=== PATIENT | female | born 2000 | race African-American/Black ===

== ENCOUNTER 2024-02-02 05:45 | Inpatient (IN) | payer MEDICAID ==
[~2024-02-02] VITALS: Ht 160 cm; Wt 90.5 kg
[2024-02-02] VITALS (19 sets, daily range): BP systolic 101–122; BP diastolic 52–77; PULSE 67–94; TEMP 97.4–98
[~2024-02-02 05:45] MED LIST: LR 1,000 ML IV SCH
[2024-02-02] MEDS ORDERED: Ondansetron 4 MG/2 ML VIAL IV SCH (06:00)
[2024-02-02] MEDS ORDERED: LR 1,000 ML IV SCH (06:00)
--- NOTE | 2024-02-02 06:15 | NUR ---
Report received and care assumed. Pt already on unit for scheduled repeat . Care plan reviewed with pt and at the bedside. Both verbalized an understanding and agreed with the plan. Call light within reach.
[2024-02-02 06:37] LABS: BASO # 0.1 K/mm3 (0.0-0.2); BASO % 0.5 % (0.0-2.0); EOS # 0.2 K/mm3 (0.0-0.7); EOS % 1.6 % (0.0-4.0); GRAN # 7.3 K/mm3 (1.4-6.5); GRAN % 62.2 % (42.2-75.2); LYMPH % 25.4 % (20.0-51.0); MEAN CELL VOLUME 85 fl (80.0-100.0); MEAN CORPUSCULAR HEMOGLOBIN 27 pg (27-31); MEAN CORPUSCULAR HGB CONC 31 g/dl (33.0-37.0); MEAN PLATELET VOLUME 9.3 fl (7.4-10.4); MONO # 1.2 K/mm3 (0.1-0.6); MONO % 9.8 % (1.7-9.3); PLATELET COUNT 375 K/mm3 (130-400); RED BLOOD COUNT 4.14 M/mm3 (4.10-5.30); REDCELL DISTRIBUTION WIDTH-CV 13.4 % (11.5-14.5)
[2024-02-02 06:39] LABS: HEMATOCRIT 35.1 % (37.0-47.0)
[2024-02-02] MEDS ORDERED: Phenylephrine 10 MG/ML VIAL ONE (07:03)
[2024-02-02] MEDS ORDERED: Oxytocin 10 UNITS/ML VIAL ONE (07:03)
[2024-02-02] MEDS ORDERED: ePHEDrine 50 MG/ML VIAL ONE (07:03)
[2024-02-02] MEDS ORDERED: NS 10 ML IV ONE ×2 (07:04→08:05)
[2024-02-02] MEDS ORDERED: MOTRIN 800800 MG/TAB PO (07:12)
[2024-02-02] MEDS ORDERED: PERCOCET 325 MG1 TA2 PO (07:12)
[2024-02-02] MEDS ORDERED: oxyCODONE 5 MG TAB PO PRN (07:15)
[2024-02-02] MEDS ORDERED: Ondansetron 4 MG/2 ML VIAL IV PRN (07:15)
[2024-02-02] MEDS ORDERED: Measles/Mumps/Rubella Virus Vaccine Live w Diluent 0.5 ML VIAL SQ SCH (07:15)
[2024-02-02] MEDS ORDERED: Acetaminophen 500 MG TAB PO PRN (07:15)
[2024-02-02] MEDS ORDERED: Loratadine 10 MG TAB PO PRN (07:15)
[2024-02-02] MEDS ORDERED: Naloxone 0.4 MG/ML VIAL IV PRN (07:15)
[2024-02-02] MEDS ORDERED: Magnes Hydrox (MOM) 80 MG/ML 30 ML CUP PO PRN (07:15)
[2024-02-02] MEDS ORDERED: LR 1,000 ML IV PRN (07:15)
[2024-02-02 07:49] LABS: TRICYCLIC ANTIDEPRESS URINE NEGATIVE (NEGATIVE)
[2024-02-02] MEDS ORDERED: Ketorolac 30 MG/ML VIAL ONE (07:49)
[2024-02-02] MEDS ORDERED: Sennosides/Docusate 8.6-50 MG TAB PO SCH (08:00)
[2024-02-02] MEDS ORDERED: dexAMETHasone 10 MG/ML VIAL ONE (08:05)
[2024-02-02] MEDS ORDERED: Ibuprofen 800 MG TAB PO SCH (13:30)
--- NOTE | 2024-02-02 16:45 | NUR ---
Pt up to the bathroom with standby assist and without complications. Moore removed. Macarena-care done. Pt ambulated back to bed. Plan of care updated. Call light within reach.
[2024-02-02] MEDS ORDERED: traZODone 50 MG TAB PO PRN (21:00)
[2024-02-03 04:00] VITALS: BP 126/67; PULSE 83; TEMP 98
[2024-02-03 08:10] VITALS: BP 110/89; PULSE 92; TEMP 98
[2024-02-03 16:17] VITALS: BP 114/65; PULSE 70; TEMP 98
[2024-02-03 19:25] VITALS: BP 117/69; PULSE 77; TEMP 97.6
[2024-02-04 08:00] VITALS: BP 118/62; PULSE 73; TEMP 98.1
--- NOTE | 2024-02-04 11:18 | NUR ---
Photographic Engineer was contacted by Iona GARCIA who put in a consult for HERMAN after patient requested information about local resources. HERMAN met with patient and her new baby, Delbert. Father of baby is asleep on the bench in the room. Patient stated her step daughter, Bailey (5) and son, Crispin (3) also live in the home. Patient advised father of baby lost his job recently and this has put a financial strain on the family. At this time, they are up to date on their rent and bills, but had to have assistance from her aunt to pay the water bill. Patient advised father of baby is going to get work through [employer], but this depends on how much work they have available for him. Patient is established with WIC and also gets SNAP benefits. Patient plans to call [facility] and WIC to update them on of baby Delbert. 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 Patient is currently going to [employer]. Patient also remarked she sees a counselor with [facility]. HERMAN provided [facility] Resource Guide and pamphlet for the Maternal Child Health program through the [facility]. HERMAN reviewed resources including [facility], [employer], and [employer] which can all help with baby supplies. Patient advised they have what they need for right now, but will likely need help with diapers once the box they have at home runs out. SW offered to assist patient in calling these resources, however she stated she was able to do this independently. HERMAN also discussed contacting [facility] to make an appointment as they can help with rent and utilities. Patient had no further questions or concerns at this time. HERMAN met with Iona GARCIA to provide the above update.
--- NOTE | 2024-02-04 14:10 | NUR ---
DISCHARGE TEACHING COMPLETED. PATIENT EDUCATED ON PRESCRIPTIONS AND FOLLOW UP APPOINTMENTS. QUESTIONS INVITED AND ANSWERED.
== END 2024-02-04 14:35 | disposition home or self-care (01) | DRG 788 ==
LOC: OB 05:45
PROVIDERS: ADMIT Obstetrics & Gynecology
PROC: 10D00Z1 Extraction of Products of Conception, Low, Open Approach (ICD-10-PCS; principal; 2024-02-02)
DX: O34.211 Maternal care for low transverse scar from previous cesarean delivery (principal); Z3A.39 39 weeks gestation of pregnancy; Z37.0 Single live birth
CPT/HCPCS: J0665; J0690; J1100; J1885; J2371; J2405; J2590; J2765; J7120